=== PATIENT | male | born 1965 | race Caucasian/White ===

== ENCOUNTER 2017-05-07 01:43 | Observation (INO) | payer OTHER ==
[~2017-05-07] VITALS: Ht 190.5 cm; Wt 115.9 kg
[2017-05-07] VITALS (7 sets, daily range): BP systolic 111–171; BP diastolic 63–103; PULSE 60–81; RESP 16–18; TEMP 98.9–99.4; O2SAT 96–98
[~2017-05-07 01:43] MED LIST: 3-IN3MIS; ASPI81 PO; ATOR40TA49 PO; CARV6.25 PO; CLOP75 PO; COUM4TAB7 PO; FERR324T4 PO; RAMI5 PO; SHOWER/TUB CHAIR LG; WALKER ROLLING; WHEELCHAIR RENTAL RA
[2017-05-07] MEDS ORDERED: NITROGLYCERIN 2% OINT 1 GM PACKET TOP ONE (02:00)
[2017-05-07] MEDS ORDERED: ASPIRIN 81 MG CHEW TAB PO ONE (02:00)
[2017-05-07] MEDS ORDERED: SODIUM CHLORIDE 0.9% FLUSH 10 ML FLUSH IVF PRN (02:00)
[2017-05-07] MEDS: NITROGLYCERIN 0.4 MG SL 25 TABS/BTL SL SCH ×2 (02:05→02:10)
[2017-05-07 02:21] LABS: AUTOMATED NEUTROPHIL # 5.1 TH/MM3 (1.8-7.7); BASOPHIL # 0.1 TH/MM3 (0-0.2); BASOPHIL % 0.7 % (0.0-2.0); EOSINOPHIL # 0.2 TH/MM3 (0-0.4); EOSINOPHIL % 1.7 % (0.0-4.0); HEMATOCRIT 40.6 % (39.0-51.0); HEMO FLAGS DIFF FINAL; LYMPH % 25.4 % (9.0-44.0); LYMPHOCYTE # 2.2 TH/MM3 (1.0-4.8); MEAN CORPUSCULAR HEMOGLOBIN 28.8 PG (27.0-34.0); MEAN CORPUSCULAR HGB CONC 34.3 % (32.0-36.0); MONO % 13.1 % (0.0-8.0); NEUT % 59.1 % (16.0-70.0); PLATELET COUNT 158 TH/MM3 (150-450); RED BLOOD COUNT 4.84 MIL/MM3 (4.50-5.90); RED CELL DISTRIBUTION WIDTH 13.3 % (11.6-17.2); WHITE BLOOD COUNT 8.7 TH/MM3 (4.0-11.0)
--- NOTE | 2017-05-07 02:28 | PD ---
HPI Chief Complaint: Chest Pain Time Seen by Provider: 01:57 Travel History International Travel<30 days: No Contact w/Intl Traveler<30days: No Traveled to known affect area: No History of Present Illness HPI The patient is a 51 year old male who presents to the [facility] emergency department with a history of chest pain that he reports began 4-5 days ago when he developed a cough. He reports that the pain only occurs with coughing. He reports that it is sharp in character and in the center of his chest and radiates out to both sides. The patient denies having any jaw pain or arm pain associated with this. He reports that he does have a sensation of difficulty taking a deep breath, however no other shortness of breath. He reports that he' s had a subjective fever, sweats, and diaphoresis. The patient denies having any nausea or vomiting. He reports that yesterday he began to have diarrhea and has had it twice. He denies having any blood in his stool or black or tarry stools. He reports that his cough is productive of green sputum and occasionally has blood in it. The patient is on Coumadin related to a history of pulmonary embolism. The patient has not had his INR checked the last 3 months. The patient's primary care physician is Dr. Toussaint. The patient's family and consumer sciences professor is Dr. Fernández. He cannot recall when he last had a stress test done. On review of systems, the patient denies any neck pain, abdominal pain, vomiting, urinary symptoms, or neurologic symptoms. 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, hypertension, hyperlipidemia Autoimmune Disease: No Anxiety: No Depression: No Heart Rhythm Problems: No Cancer: No Cardiovascular Problems: Yes (2013 [employer] [place], ) High Cholesterol: Yes Chemotherapy: No Chest Pain: No Congestive Heart Failure: No Diabetes: No Diminished Hearing: No Endocrine: No GERD: No Genitourinary: No Hiatal Hernia: No Hypertension: Yes Immune Disorder: No Implanted Vascular Access Dvce: Yes Musculoskeletal: No Neurologic: No Psychiatric: No Reproductive: No Radiation Therapy: No Renal Failure: Yes (acute kidney injury) Thyroid Disease: No Ulcer: No Past Surgical History Narrative Surgical The patient's past surgical history is significant for cardiac catheterization with stent placement, hernia repair, elbow surgery, vastectomy. Abdominal Surgery: Yes (hernia inguinal) AICD: No Arteriovenous Shunt: No Body Medical Devices: External Life vest Cardiac Surgery: No Ear Surgery: No Endocrine Surgery: No Eye Surgery: No Genitourinary Surgery: Yes (vasectomy) Gynecologic Surgery: No Insulin Pump: No Joint Replacement: Yes (elbow surgery) Oral Surgery: Yes (wisdom teeth) Pacemaker: No Thoracic Surgery: No Other Surgery: Yes Social History Alcohol Use: Yes (rarely) Tobacco Use: No Substance Use: No Allergies-Medications (Allergen,Severity, Reaction): Coded Allergies: Vancomycin (Verified Allergy, Severe, Shortness of Breath, 05/07/17) resp distress, rash Levaquin (Verified Allergy, Intermediate, Rash, 05/07/17) Patient had a rash post infusion of Levaquin. Naproxen (Unverified Allergy, Unknown, 05/07/17) Reported Meds & Prescriptions Reported Meds & Active Scripts Active Reported Warfarin 10 Mg Tab 12.5 Mg PO DAILY Carvedilol 6.25 Mg Tab 6.25 Mg PO BID Atorvastatin (Atorvastatin Calcium) 40 Mg Tab 40 Mg PO HS Aspirin 81 Mg Chew 81 Mg CHEW DAILY Review of Systems General / Constitutional: Positive: Fever, Chills Eyes: No: Visual changes HENT: No: Headaches Cardiovascular: Positive: Chest Pain or Discomfort, Diaphoresis Respiratory: Positive: Cough, Shortness of Breath (difficulty taking a deep breath) Gastrointestinal: Positive: Diarrhea, Changes in Bowel Habits, No: Nausea, Vomiting, Abdominal Pain Genitourinary: No: Dysuria Musculoskeletal: No: Pain Skin: No Rash Neurologic: No: Weakness Psychiatric: No: Depression Endocrine: No: Polydipsia Hematologic/Lymphatic: No: Easy Bruising Physical Exam Narrative General: The patient is a well-developed well-nourished male in no acute distress. Head and Neck exam: Head is normocephalic atraumatic. Eyes: EOMI, pupils are equal round and reactive to light. Nose: Midline septum with pink mucous membranes Mouth: Dentition unremarkable. Moist mucus membranes. Posterior oropharynx is not erythematous. No tonsillar hypertrophy. Uvula midline. Airway patent. Neck: No palpable lymphadenopathy. No nuchal rigidity. No thyromegaly. Cardiovascular: Regular rate and rhythm without murmurs, gallops, or rubs. No pulse deficit to the extremities and simultaneous auscultation and palpation of his radial artery. Lungs: Clear to auscultation bilaterally. No wheezes, rhonchi, or rales. Abdomen: Soft, without tenderness to palpation in all 4 quadrants of the abdomen. No guarding, rebound, or rigidity. Normal bowel sounds are audible. No tenderness on palpation of McBurney's point. Negative Sanchez sign. Extremities: No clubbing, cyanosis, or edema. 2+ pulses in all 4 extremities. No calf tenderness on palpation. Back: No costovertebral angle tenderness to palpation. Neurologic Exam: Grossly nonfocal. Skin Exam: No rash noted. Intact skin that is warm and dry. Data Data Last Documented VS Vital Signs Date Time Temp Pulse Resp B/P Pulse Ox O2 Delivery O2 Flow Rate FiO2 05/07/17 02:05 81 16 153/92 96 Room Air 05/07/17 01:47 98.9 Orders Electrocardiogram (05/07/17 01:57) B-Type Natriuretic Peptide (05/07/17 01:57) Ckmb (Isoenzyme) Profile (05/07/17 01:57) Complete Blood Count With Diff (05/07/17 01:57) Comprehensive Metabolic Panel (05/07/17 01:57) Magnesium (Mg) (05/07/17 01:57) Prothrombin Time / Inr (Pt) (05/07/17 01:57) Act Partial Throm Time (Ptt) (05/07/17 01:57) Troponin I (05/07/17 01:57) Lipase (05/07/17 01:57) Chest, Single Ap (05/07/17 01:57) Ecg Monitoring (05/07/17 01:57) Bilateral Bp Monitoring (05/07/17 01:57) Iv Access Insert/Monitor (05/07/17 01:57) Oximetry (05/07/17 01:57) Oxygen Administration (05/07/17 01:57) Aspirin Chew (Aspirin Chew) (05/07/17 02:00) Nitroglycerin 2% Oint (Nitroglycerin 2% (05/07/17 02:00) Sodium Chloride 0.9% Flush (Ns Flush) (05/07/17 02:00) Nitroglycerin Sl (Nitrostat Sl) (05/07/17 02:00) Sodium Chlorid 0.9% 500 Ml Inj (Ns 500 M (05/07/17 02:30) Ct Pulmonary Angiogram (05/07/17 02:28) CKMB (05/07/17 02:05) CKMB% (05/07/17 02:05) Lactic Acid Sepsis Protocol (05/07/17 03:22) Blood Culture (05/07/17 03:22) Ceftriaxone Inj (Rocephin Inj) (05/07/17 03:30) Azithromycin Inj (Zithromax Inj) (05/07/17 03:30) Sodium Chlorid 0.9% 500 Ml Inj (Ns 500 M (05/07/17 03:30) Iohexol 350 Inj (Omnipaque 350 Inj) (05/07/17 03:27) Admit Order (Ed Use Only) (05/07/17 04:09) Labs Laboratory Tests Test 05/07/17 05/07/17 02:05 04:00 White Blood Count 8.7 TH/MM3 Red Blood Count 4.84 MIL/MM3 Hemoglobin 13.9 GM/DL Hematocrit 40.6 % Mean Corpuscular Volume 84.0 FL Mean Corpuscular Hemoglobin 28.8 PG Mean Corpuscular Hemoglobin 34.3 % Concent Red Cell Distribution Width 13.3 % Platelet Count 158 TH/MM3 Mean Platelet Volume 9.1 FL Neutrophils (%) (Auto) 59.1 % Lymphocytes (%) (Auto) 25.4 % Monocytes (%) (Auto) 13.1 % Eosinophils (%) (Auto) 1.7 % Basophils (%) (Auto) 0.7 % Neutrophils # (Auto) 5.1 TH/MM3 Lymphocytes # (Auto) 2.2 TH/MM3 Monocytes # (Auto) 1.1 TH/MM3 Eosinophils # (Auto) 0.2 TH/MM3 Basophils # (Auto) 0.1 TH/MM3 CBC Comment DIFF FINAL Differential Comment Prothrombin Time 20.0 SEC Prothromb Time International 1.8 RATIO Ratio Activated Partial 35.5 SEC Thromboplast Time Sodium Level 140 MEQ/L Potassium Level 3.9 MEQ/L Chloride Level 106 MEQ/L Carbon Dioxide Level 26.1 MEQ/L Anion Gap 8 MEQ/L Blood Urea Nitrogen 23 MG/DL Creatinine 1.02 MG/DL Estimat Glomerular Filtration 77 ML/MIN Rate Random Glucose 99 MG/DL Calcium Level 8.4 MG/DL Magnesium Level 1.9 MG/DL Total Bilirubin 0.6 MG/DL Aspartate Amino Transf 26 U/L (AST/SGOT) Alanine Aminotransferase 27 U/L (ALT/SGPT) Alkaline Phosphatase 111 U/L Total Creatine Kinase 325 U/L Creatine Kinase MB 1.1 NG/ML Creatine Kinase MB % 0.3 % Troponin I LESS THAN 0.02 NG/ML B-Type Natriuretic Peptide 39 PG/ML Total Protein 7.1 GM/DL Albumin 3.4 GM/DL Lipase 144 U/L Lactic Acid Level 0.7 mmol/L MDM Medical Decision Making Medical Screen Exam Complete: Yes Emergency Medical Condition: Yes Medical Record Reviewed: Yes Interpretation(s) Last Impressions CT Angiography 05/07/17227 Signed Impressions: Service Date/Time: Sunday, May 07, 2017 03:24 - CONCLUSION: 1. No pulmonary embolus. 2. Trace atelectasis of both bases. 3. Coronary artery calcification, most conspicuous of the left anterior descending. Marcel Nobles MD Chest X-Ray 05/07/17 0157 Signed Impressions: Service Date/Time: Sunday, May 07, 2017 02:23 - CONCLUSION: Mild left lower lobe infiltrate. Marcel Nobles MD Differential Diagnosis Acute coronary syndrome, versus pneumonia, versus bronchitis, versus costochondritis, versus pleurisy, versus pulmonary embolism. Narrative Course During the course of the patients emergency department visit, the patients history, examination, and differential diagnosis were reviewed with the patient. The patient had IV access obtained and blood work sent for analysis. The patient was placed on a court recording monitor with oximetry and blood pressure monitoring. An EKG was done on arrival. The patient's EKG shows a sinus rhythm heart rate of 80, no acute ST segment elevation or depression a Q wave is noted in V1 and V2. QRS duration is 92 ms, QTC 387 ms. The patient was initially provided aspirin 162 mg by mouth 1, nitroglycerin 1 inch to the chest wall, nitroglycerin sublingual times one. The patient was given normal saline a 500 mL bolus 1. The patients laboratory studies were reviewed and remarkable for a white count of 8.7, hemoglobin 13.9, platelets 158 with monocytes 13.1 , CMP is remarkable for a BUN of 23, GFR 77, calcium 8.4, CPK 325, troponin I less than 0.02, BNP 39 , lipase 144. PT 20, INR 1.8, PTT 35.5 Radiology studies were reviewed and remarkable for a chest x-ray that shows a mild left lower lobe infiltrate. The patient had blood cultures 2 added to his blood, a lactic acid level added to his blood, and was started on Rocephin 1 g IV, Zithromax 500 IV. As the patient's INR was subtherapeutic and he recently traveled by plane, a CTA to rule out PE was ordered due to the pleuritic nature of his chest pain. CT a shows no evidence of pulmonary embolism, trace atelectasis at both bases, coronary artery calcification most suspicious of the left anterior descending. As the patient's CT scan of the chest shows only atelectasis, no evidence of pneumonia, the patient will be admitted to the chest pain center for rule out serial cardiac enzyme protocol. The patients results were discussed with the patient, including the plan of care. I explained that further testing and/ or monitoring is indicated based on the patients history, examination, and/ or laboratory findings. Therefore, I recommended admission for additional evaluation. The patient expressed understanding and was agreeable with this plan. The patient was admitted to the hospital in stable condition and sent to a bed under the care of the chest pain center. Diagnosis Primary Impression: Chest pain, rule out acute myocardial infarction Additional Impressions: Cough Upper respiratory infection Qualified Code: J06.9 - Upper respiratory tract infection, unspecified type Admitting Information Admitting Physician Requests: Dotty Lujan MD May 07, 2017 02:28
[2017-05-07] MEDS ORDERED: SODIUM CHLORID 0.9% 500 ML INJ 500 ML IV ONE ×2 (02:30→03:30)
[2017-05-07 02:32] LABS: APTT (PATIENT) 35.5 SEC (24.3-30.1); INTERNATIONAL NORMALIZED RATIO 1.8 RATIO
[2017-05-07] MEDS ORDERED: ATOR40TA16 PO (02:35)
[2017-05-07] MEDS ORDERED: ASPI81CH CHEW (02:35)
[2017-05-07 02:38] LABS: ALKALINE PHOSPHATASE 111 U/L (45-117); ALT (GPT) 27 U/L (12-78); ANION GAP 8 MEQ/L (5-15); AST (GOT) 26 U/L (15-37); BICARBONATE 26.1 MEQ/L (21.0-32.0); BLOOD UREA NITROGEN 23 MG/DL (7-18); CHLORIDE 106 MEQ/L (98-107); CREATINE KINASE 325 U/L (39-308); GLOMERULAR FILTRATION RATE 77 ML/MIN (>89); MAGNESIUM 1.9 MG/DL (1.5-2.5); SODIUM (NA) 140 MEQ/L (136-145); TOTAL BILIRUBIN ADULT 0.6 MG/DL (0.2-1.0)
[2017-05-07] MEDS ORDERED: WARF-22 PO (02:38)
[2017-05-07] MEDS ORDERED: CARV6.252 PO (02:38)
[2017-05-07 02:39] LABS: POTASSIUM 3.9 MEQ/L (3.5-5.1)
[2017-05-07 02:51] LABS: CKMB 1.1 NG/ML (0.5-3.6)
--- NOTE | 2017-05-07 02:51 | RADRPT ---
EXAM DATE/TIME: 05/07/2017 02:23 [facility] COMPARISON: CHEST PA & LAT, August 19, 2014, 12:07. INDICATIONS : Chest pain and cough. MEDICAL HISTORY : Myocardial infarction. Hypertension SURGICAL HISTORY : Coronary artery stent. ENCOUNTER: Initial ACUITY: 4 - 6 days PAIN SCORE: 8/10 LOCATION: Bilateral chest FINDINGS: Mild infiltrate seen in the left lower lobe. Right lung is clear. No pleural effusion or pneumothorax on either side. Heart size stable, within normal limits. CONCLUSION: Mild left lower lobe infiltrate. Marcel Nobles MD on May 07, 2017 at 2:49 Board Certified Radiologist. This report was verified electronically.
[2017-05-07] MEDS ORDERED: IOHEXOL 350 MG/ML 10 ML VIAL (for RAD DIAG) IV ONE (03:27)
[2017-05-07] MEDS ORDERED: AZITHROMYCIN INJ 500 MG in SODIUM CHLOR 0.9% 250 ML INJ 250 ML IV ONE (03:30)
[2017-05-07] MEDS ORDERED: cefTRIAXone INJ 1,000 MG in SODIUM CHLORIDE 0.9% INJ 100 ML IV ONE (03:30)
--- NOTE | 2017-05-07 03:49 | RADRPT ---
EXAM DATE/TIME: 05/07/2017 03:24 [facility] COMPARISON: No previous studies available for comparison. INDICATIONS : Chest pain when coughing. IV CONTRAST: 70 cc Omnipaque 350 (iohexol) IV RADIATION DOSE: 23.38 CTDIvol (mGy) MEDICAL HISTORY : Cardiovascular disease. Hypertension. Pulmonary emboli SURGICAL HISTORY : Umbilical hernia repair. ENCOUNTER: Initial ACUITY: 1 day PAIN SCALE: 5/10 LOCATION: chest TECHNIQUE: Volumetric scanning of the chest was performed using a pulmonary embolism protocol MIP images were re constructed. Using automated exposure control and adjustment of the mA and/or kV according to patien t size, radiation dose was kept as low as reasonably achievable to obtain optimal diagnostic quality images. FINDINGS: PULMONARY ARTERIES: No filling defects are seen in the pulmonary arteries through the segmental level. LUNGS: Mild atelectasis seen at both bases. PLEURAE: There is no pleural thickening or pleural effusion. MEDIASTINUM: There is good visualization of the great vessels of the middle mediastinum. No evidence of mediastin al or hilar adenopathy/mass. There is mural atherosclerosis seen of the left anterior descending pablo nary artery. MUSCULOSKELETAL: Within normal limits for patient age. MISCELLANEOUS: The visualized upper abdominal organs demonstrate no acute abnormality. CONCLUSION: 1. No pulmonary embolus. 2. Trace atelectasis of both bases. 3. Coronary artery calcification, most conspicuous of the left anterior descending. Marcel Nobles MD on May 07, 2017 at 3:46 Board Certified Radiologist. This report was verified electronically.
[2017-05-07] MEDS ORDERED: ONDANSETRON HCL 4 MG/2 ML VIAL IV PRN (06:15)
[2017-05-07] MEDS ORDERED: ACETAMINOPHEN 500 MG CPLT PO PRN (06:15)
[2017-05-07] MEDS ORDERED: SODIUM CHLORIDE 0.9% FLUSH 10 ML FLUSH IV FLUSH PRN (06:15)
[2017-05-07 06:58] LABS: CREATINE KINASE 250 U/L (39-308)
--- NOTE | 2017-05-07 08:35 | HHI.HP ---
HPI Primary Care Physician Caroline Toussaint M.D. Chief Complaint Chest pain History of Present Illness 51-year-old male with known coronary artery disease including times one cardiac stent, hypertension, hyperlipidemia, and cardiac arrest presents to emergency room for further evaluation of chest pain. Onset approximately 4 days ago. Location center of his chest. Described as sharp pain only occurring when he coughs. States when he lays down he has "coughing fits" that then lead to worsening chest pain. No associated symptoms. No radiation of pain. Duration varies with coughing. Precipitating factors coughing and taking a deep breath. No relieving factors. Endorses sputum production that is mucus and occasionally blood-tinged. He has felt feverish in the evenings last 4 nights and somewhat fatigued. Review of Systems General: Fatigue and fever. No weakness, chills, or recent illness change in appetite HEENT: No GAUTHIER, no vision changes, no nasal congestion or drainage CV: As stated above. Denies any current chest pain or pressure. No palpitations or dizziness. Follows with Dr. Toussaint, INR has not been checked for 3 months. Endorses compliance with warfarin. RESP: No SOB. Endorses cough 4 days productive cough new gets/blood-tinged. No hemoptysis. No wheezing. GI: No nausea, vomiting, bowel changes, diarrhea, constipation, pain, distention , melena, blood in the stool. EXT: No lower leg edema, no paraesthesias MS: No discomfort or change in ROM NEURO: No difficulty with balance, LOC, motor/sensory deficits PSYCH: No anxiety, depression, or situational stress. SKIN: No rashes, no concerning lesions Past Family Social History Allergies: Coded Allergies: Vancomycin (Verified Allergy, Severe, Shortness of Breath, 05/07/17) resp distress, rash Levaquin (Verified Allergy, Intermediate, Rash, 05/07/17) Patient had a rash post infusion of Levaquin. Naproxen (Unverified Allergy, Unknown, 05/07/17) Past Medical History Coronary artery disease, times one cardiac stent, bilateral pulmonary emboli, hypertension, hyperlipidemia, cardiac arrest Past Surgical History Hernia repair, elbow surgery Reported Medications Active Reported Warfarin 10 Mg Tab 12.5 Mg PO DAILY Carvedilol 6.25 Mg Tab 6.25 Mg PO BID Atorvastatin (Atorvastatin Calcium) 40 Mg Tab 40 Mg PO HS Aspirin 81 Mg Chew 81 Mg CHEW DAILY Active Ordered Medications Current Medications Medications (Trade) Dose Ordered Sig/Yanique Route Start Time Stop Time Status Last Admin (Tylenol) 500 mg Q4H PRN PO 05/07/17 06:15 (Zofran Inj) 4 mg Q6H PRN IV 05/07/17 06:15 Social History Known coronary artery disease, hypertension, and hyperlipidemia. No known diabetes. Patient had a cardiac arrest 2014 totally occluded LAD. Lifelong nonsmoker. Denies any alcohol or illegal drug use. 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 Endorses he has been hesitant restarting cardiovascular exercise due to past events. Past cardiac testing No recent stress testing. 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 07/28/14 Cardiac catheterization STEMI alert (Dr. Fernández) conclusions 1. Acute thrombolytic occlusion LAD. 2. Cardiac arrest with ventricular fibrillation during defibrillation to normal sinus rhythm. 3. Cardiogenic shock. 4. Pulmonary edema. 5. Successful Rheolytic thrombectomy of left anterior descending coronary artery. 3. Successful percutaneous angioplasty and drug- eluting stent to the proximal left anterior descending coronary artery 7. Successful placement of hypothermia induced catheter Physical Exam Vital Signs Vital Signs Date Time Temp Pulse Resp B/P Pulse Ox O2 Delivery O2 Flow Rate FiO2 05/07/17 07:58 97 21 05/07/17 06:04 98 05/07/17 02:05 81 16 153/92 96 Room Air 05/07/17 01:52 80 18 171/103 97 05/07/17 01:47 98.9 80 16 145/97 97 Physical Exam GENERAL: Alert WN, WD, NAD, pleasant, male HEAD: NC, AT EYES: Sclera clear, conjunctiva without injection, pupils equal and round ENT: Mucous membranes pink and moist NECK: Supple, no masses, trachea midline CV: RRR, without murmur, rub, gallop, no JVD, S1-S2 no S3-S4. RESP: Clear lungs throughout bilateral, no crackles, wheeze, rhonchi, symmetrical chest rise, nonlabored, able to speak in full sentences ABD: Soft, NT, ND, no masses, positive bowel tones BACK: No scoliosis EXT: Pulses +24, no dependent edema MS: Normal tone 4 extremities, nontender, no obvious deformities, full range of motion NEURO: CN II through CN XII grossly intact, motor strength 5/5, gait WNL PSYCH: A+O 3, pleasant affect, appropriate speech, appropriate mood and affect , insight and judgment SKIN: Normal turgor, normal texture, no lesions, no rashes, brisk cap refill, even hair distribution Laboratory Laboratory Tests Test 05/07/17 05/07/17 05/07/17 02:05 04:00 06:10 White Blood Count 8.7 Red Blood Count 4.84 Hemoglobin 13.9 Hematocrit 40.6 Mean Corpuscular Volume 84.0 Mean Corpuscular Hemoglobin 28.8 Mean Corpuscular Hemoglobin 34.3 Concent Red Cell Distribution Width 13.3 Platelet Count 158 Mean Platelet Volume 9.1 Neutrophils (%) (Auto) 59.1 Lymphocytes (%) (Auto) 25.4 Monocytes (%) (Auto) 13.1 Eosinophils (%) (Auto) 1.7 Basophils (%) (Auto) 0.7 Neutrophils # (Auto) 5.1 Lymphocytes # (Auto) 2.2 Monocytes # (Auto) 1.1 Eosinophils # (Auto) 0.2 Basophils # (Auto) 0.1 CBC Comment DIFF FINAL Differential Comment Prothrombin Time 20.0 Prothromb Time International 1.8 Ratio Activated Partial 35.5 Thromboplast Time Sodium Level 140 Potassium Level 3.9 Chloride Level 106 Carbon Dioxide Level 26.1 Anion Gap 8 Blood Urea Nitrogen 23 Creatinine 1.02 Estimat Glomerular Filtration 77 Rate Random Glucose 99 Calcium Level 8.4 Magnesium Level 1.9 Total Bilirubin 0.6 Aspartate Amino Transf 26 (AST/SGOT) Alanine Aminotransferase 27 (ALT/SGPT) Alkaline Phosphatase 111 Total Creatine Kinase 325 250 Creatine Kinase MB 1.1 1.0 Creatine Kinase MB % 0.3 Troponin I LESS THAN 0.02 LESS THAN 0.02 B-Type Natriuretic Peptide 39 Total Protein 7.1 Albumin 3.4 Lipase 144 Lactic Acid Level 0.7 Date/Time Procedure Status Source Growth 05/07/17 04:00 Aerobic Blood Culture Received Blood Peripheral Pending 05/07/17 04:00 Anaerobic Blood Culture Received Blood Peripheral Pending Result Diagram: 05/07/175 05/07/[address] Angiography 05/07/17227 Signed Impressions: Service Date/Time: Sunday, May 07, 2017 03:24 - CONCLUSION: 1. No pulmonary embolus. 2. Trace atelectasis of both bases. 3. Coronary artery calcification, most conspicuous of the left anterior descending. Marcel Nobles MD Chest X-Ray 05/07/17 0157 Signed Impressions: Service Date/Time: Sunday, May 07, 2017 02:23 - CONCLUSION: Mild left lower lobe infiltrate. Marcel Nobles MD Course EKGs 3 EKG showed normal sinus rhythm, normal axis, no ST or T-segment changes Assessment and Plan Assessment and Plan #1 Chest painadmitted to chest pain center. Ruled out with 3 sets of EKGs, cardiac enzymes, and monitor throughout evening. Seen and evaluated by Dr. Mateo Springer. Completed a Mike protocol exercise stress test which did not show signs of ischemia. Discharge later this morning. Patient agreeable. Follow-up with cardiology as previously scheduled. #2 Pleurisy-doxycycline 100 mg twice a day 10 days, follow up with PCP, drink plenty of fluids and get adequate rest. #3 Subtherapeutic INRcall PCP office today for further direction, continue warfarin #4 Coronary artery diseasecontinue aspirin, atorvastatin, and carvedilol Candace Hernandez May 07, 2017 08:35
[2017-05-07] MEDS ORDERED: NITROGLYCERIN 0.4 MG SL 25 TABS/BTL SL PRN (08:45)
[2017-05-07] MEDS ORDERED: SODIUM CHLORIDE 0.9% FLUSH 10 ML FLUSH IV FLUSH SCH (09:00)
[2017-05-07] MEDS ORDERED: CARVEDILOL 6.25 MG TAB PO SCH (11:00)
--- NOTE | 2017-05-07 11:00 | HHI.DCPOC ---
Discharge Care Plan Diagnosis: (1) Atypical chest pain (2) Hx of coronary artery disease (3) Upper respiratory infection Goals to Promote Your Health * To prevent worsening of your condition and complications * To maintain your health at the optimal level Directions to Meet Your Goals Take your medications as prescribed Follow your dietary instruction Follow activity as directed Keep your appointments as scheduled Take your immunizations and boosters as scheduled If your symptoms worsen call your PCP, if no PCP go to Urgent Care Center or Emergency Room Smoking is Dangerous to Your Health. Avoid second hand smoke Call the 24-hour hour crisis hotline for domestic abuse at Candace Hernandez May 07, 2017 11:00
[2017-05-07] MEDS ORDERED: DOXY100C PO (11:10)
--- NOTE | 2017-05-07 13:53 | EKG ---
Date Performed: 05/07/2017 Time Performed: 06:17:55 PTAGE: 51 years EKG: Sinus rhythm WITH SINUS ARRHYTHMIA SEPTAL MYOCARDIAL INFARCTION ABNORMAL ECG PREVIOUS TRACING : 05/07/2017 01.55 Since previous tracing, no significant change noted DOCTOR: Mateo Springer Interpretating Date/Time 05/07/2017 13:53:08
--- NOTE | 2017-05-07 13:55 | EKG ---
Date Performed: 05/07/2017 Time Performed: 01:55:30 PTAGE: 51 years EKG: Sinus rhythm ANTEROSEPTAL MYOCARDIAL INFARCTION ABNORMAL ECG NO PREVIOUS TRACING DOCTOR: Mateo Springer Interpretating Date/Time 05/07/2017 13:54:22
--- NOTE | 2017-05-07 14:18 | TR ---
Date Performed: 05/07/2017 Time Performed: 09:51:19 DOCTOR: Mateo Springer DRUG LIST: CLINICAL HISTORY: CP R/O ND REASON FOR TEST: REASON FOR ENDING: OBSERVATION: CONCLUSION: Mike protocol completed. Stopped sec to exceeding target heart rate and leg fatigue . Maximum XZ=192 % Target HR Achieved=86.0% Total Exercise Time=8:12 Maximum GT=427/70. No reprod gustavo st discomfort. No st t segment changes to sugg ischemia. Good exercise tolerance. Rare PVC. Normal b p response. Recovery quick and unremarkable. COMMENTS: Patient exercised using the Mike protocol. No electrocardiographic changes were seen to suggest ischemia. Hemodynamic response to exercise was normal. No significant arrhythmia was prese nt.
[2017-05-07] MEDS ORDERED: WARFARIN SOD 10 MG TAB PO SCH (16:00)
[2017-05-07] MEDS ORDERED: WARFARIN SOD 2.5 MG TAB PO SCH (16:00)
[2017-05-07] MEDS ORDERED: ATORVASTATIN 40 MG TAB PO SCH (21:00)
== END 2017-05-07 12:02 | disposition home or self-care (01) ==
LOC: NEPE 01:43 → NEDA 04:11 → NEPGCP 06:22
PROVIDERS: ADMIT Internal Medicine Interventional Cardiology; ATTEND Internal Medicine Interventional Cardiology
DX: R07.89 Other chest pain (principal); R09.1 Pleurisy; I25.10 Atherosclerotic heart disease of native coronary artery without angina pectoris; I25.2 Old myocardial infarction; I10 Essential (primary) hypertension; E78.00 Pure hypercholesterolemia, unspecified; E78.5 Hyperlipidemia, unspecified; Z88.1 Allergy status to other antibiotic agents; Z86.711 Personal history of pulmonary embolism; Z86.74 Personal history of sudden cardiac arrest; Z79.82 Long term (current) use of aspirin; Z79.01 Long term (current) use of anticoagulants; Z95.5 Presence of coronary angioplasty implant and graft; Z96.629 Presence of unspecified artificial elbow joint
CPT/HCPCS: 71010; 71275; 80053; 82550; 82552; 83605; 83690; 83735; 83880; 84484; 85025; 85610; 85730; 87040; 93005; 93017; 96360; 99285; G0378; J0456; J0696; J7040; J7050; Q9967